=== PATIENT | female | born 1975 | race Asian ===

== ENCOUNTER → 2020-07-25 12:58 | Outpatient (CLI) | payer OTHER, SELFPAY ==
[2020-07-25] MEDS: COVID-19 VACC #1, MRNA(MOD) 100 MCG/0.5 ML VIAL IM (13:04)
== END ==
PROVIDERS: Visit Provider Internal Medicine
DX: Z23 Encounter for immunization (principal)
CPT/HCPCS: 0011A; 91301

== ENCOUNTER → 2020-08-22 13:27 | Outpatient (CLI) | payer OTHER, SELFPAY ==
[2020-08-22] MEDS: COVID-19 VACC #2, MRNA(MOD) 100 MCG/0.5 ML VIAL IM (13:40)
== END ==
PROVIDERS: Visit Provider Internal Medicine
DX: Z23 Encounter for immunization (principal)
CPT/HCPCS: 0012A; 91301

== ENCOUNTER 2020-11-24 07:22 | Emergency (ER) | payer OTHER, SELFPAY ==
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
[2020-11-24 07:34] VITALS: BP 152/93; PULSE 66; RESP 16; TEMP 36.8; O2SAT 100; BMI 21.0
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
== END 2020-11-24 08:25 | disposition home or self-care (01) ==
PROVIDERS: Emergency Provider Emergency Medicine
DX: S09.90XA Unspecified injury of head, initial encounter (principal); M54.2 Cervicalgia; V89.2XXA Person injured in unspecified motor-vehicle accident, traffic, initial encounter
CPT/HCPCS: 72125; 99283; 99284

== ENCOUNTER → 2021-07-22 16:13 | Outpatient (CLI) | payer SELFPAY ==
[2021-07-22 17:17] LABS: COVID19 -Nasal RAPID POSITIVE (Negative)
== END ==
PROVIDERS: Referring Provider Nurse Practitioner Family; Visit Provider Nurse Practitioner Family
DX: U07.1 COVID-19 (principal); J02.9 Acute pharyngitis, unspecified; Z20.822 Contact with and (suspected) exposure to COVID-19
CPT/HCPCS: 87070; 87635